=== PATIENT | female | born 1995 | race African-American/Black ===

== ENCOUNTER 2024-09-20 19:04 | Emergency (ER) | payer OTHER ==
[~2024-09-20] VITALS: Ht 162.6 cm; Wt 68.0 kg
[2024-09-20 19:13] VITALS: BP 124/93; PULSE 100; RESP 16; TEMP 98.2; O2SAT 100
[2024-09-20] MEDS ORDERED: HYDR-4062 PO (19:34)
== END 2024-09-20 20:09 | disposition home or self-care (01) ==
LOC: EMS 19:04
DX: K08.89 Other specified disorders of teeth and supporting structures (principal)
CPT/HCPCS: 99283; Z7502